=== PATIENT | female | born 1985 | race Caucasian/White ===

== ENCOUNTER → 2018-03-30 | Outpatient (CLI) | payer OTHER | LOC: FIMAGING 11:38 | PROVIDERS: ATTEND Family Medicine | DX: M79.672 Pain in left foot (principal) ==

== ENCOUNTER → 2018-12-08 | Outpatient (CLI) | payer OTHER | LOC: FIMAGING 17:48 | PROVIDERS: ATTEND Psychiatry & Neurology Neurology | DX: G43.709 Chronic migraine without aura, not intractable, without status migrainosus (principal); Z82.49 Family history of ischemic heart disease and other diseases of the circulatory system ==